=== PATIENT | female | born 1980 | race Caucasian/White ===

== ENCOUNTER 2024-01-12 21:50 | Emergency (ER) | payer BC, SELFPAY ==
[2024-01-12 21:50] VITALS: BMI 27.1
[2024-01-12 21:56] VITALS: BP 148/102
[2024-01-12 22:27] LABS: % Basophils 0.6 % (0-2); % Eosinophils 4.1 % (0-6); % Immature Granulocytes 0.3 % (0-0.5); % Lymphocytes 14.6 % (20.5-51.1); % Neutrophils 71.4 % (42.2-75.2); Absolute Eosinophils 0.1 10^3/uL (0-0.7); Absolute Lymphocytes 0.5 10^3/uL (1.2-3.4); Absolute Monocytes 0.3 10^3/uL (0.1-0.6); Absolute Neutrophils 2.5 10^3/uL (1.4-6.5); Hematocrit 39.4 % (37.0-47.0); Hemoglobin 14.2 g/dL (12.0-16.0); Mean Corpuscular Hgb 34.5 pg (27.0-31.0); Mean Corpuscular Volume 95.6 fL (81.0-99.0); Mean Platelet Volume 9.5 fL (7.4-10.4); Nucleated Red Blood Cells % 0 %; Platelet Count 175 10^3/uL (130-400); Red Blood Cell Count 4.12 10^6/uL (4.20-5.40); Red Cell Dist. Width 12.2 % (11.5-14.5); White Blood Cell Count 3.4 10^3/uL (4.8-10.8)
[2024-01-12 22:40] LABS: Lactic Acid 1.3 mmol/L (0.7-2.0)
[2024-01-12 22:41] LABS: ALT (SGPT) 23 U/L (0-35); AST (SGOT) 27 U/L (14-36); Albumin 4.8 g/dl (3.5-5.0); Alkaline Phosphatase 57 U/L (38-126); Blood Urea Nitrogen 9 mg/dl (7-17); Calcium 9.2 mg/dl (8.4-10.2); Carbon Dioxide 20 mmol/L (22-30); Chloride 101 mmol/L (98-107); Glucose 122 mg/dl (70-99); Sodium 130 mmol/L (135-145); Total Bilirubin 0.4 mg/dl (0.2-1.3); eGFR > 60.00
[2024-01-12 22:49] LABS: COVID-19 Antigen Negative (Negative)
[2024-01-13 00:34] VITALS: BP 123/81
--- NOTE | 2024-01-13 00:37 | ED.GENMED ---
History of Present Illness
<CORINNA Cline - Last Filed: 01/13/24 01:01>
General
Chief Complaint: Fever
Source: patient and significant other
Exam Limitations: none
Time Seen by Provider: 01/13/24 00:33
Nursing documentation reviewed up to this point in time: agreed with
Travel History
Have you had any contact with someone who has COVID-19?: No
Do you have any symptoms of coronavirus? Fever > 100 degrees, chills, cough, shortness of breath, sore throat, loss of taste or smell, muscle aches, or headache?: No
History of Present Illness
History of Present Illness:
patient is a 43 y/o female with PMH of hidraadenitis presenting with fever x 1 day. patient states she noticed chills earlier today. temperature on admission was 100.4. patient had an I and D 5 days ago for Hidradenitis in the axilla. Patient states
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 Patient is currently on bactrim and spirnolactone after I and D. Patient has been experiencing HOROWITZ since arrival to ED that is bilateral localized to
posterior head. Patient describes HOROWITZ as pressure. Patien's admits that she has been flushed and slightly red all day. patient admits to mild SOB. Patient denies N/V/D/C, abdominal pain, weakness, CP, foul smelling pus/discharge from
incision site, cough, dysuria, sore threat.
Past History
<CORINNA Cline - Last Filed: 01/13/24 01:01>
Past History
ED Past Medical History: Other (hidraadenitis)
ED Past Surgical History: Appendectomy and Other (I and D 5 days ago in axilla )
Review of Systems
<CORINNA Cline - Last Filed: 01/13/24 01:01>
Review of Systems
All Other Systems: Not applicable
Constitutional: Reports fever and chills
EENT: Reports no symptoms
Respiratory: Reports other (SOB)
Cardiac: Reports no symptoms
ABD/GI: Reports no symptoms
: Reports no symptoms
Musculoskeletal: Reports no symptoms
Skin: Reports other (redness)
Neurological: Reports headache
Endocrine: Reports no symptoms
Hematologic/Lymphatic: Reports no symptoms
Psychiatric: Reports no symptoms
Phy Exam
<CORINNA Cline - Last Filed: 01/13/24 01:01>
General Physical Exam
General Presentation: well appearing and no apparent distress
General Skin: warm and dry
General Habitus: normal
General Mental: alert
General Hydration: appears well hydrated
ENT Exam
ENT Exam: EOMI, pharynx normal, neck supple and normocephalic
Eye Exam
Eye Exam: PERRL, cornea clear and conjunctiva normal
Cardiovascular Exam
Cardiovascular Exam: regular rate/rhythm, no edema, no murmur and normal peripheral pulses
Pulmonary Exam
Pulmonary Exam: lungs clear, no respiratory distress, no rales, no crackles, no rhonchi, no stridor, no wheezing and no cough
Gastrointestinal Exam
Gastrointestinal Exam: normal bowel sounds, non tender, soft, no organomegaly, no pulsatile mass and non distended
Neurological Exam
Neurological Exam: alert, oriented x3, no motor deficits and speech normal
Musculoskeletal Exam
Musculoskeletal Exam: full ROM and no edema
Skin Exam
Skin Exam: redness (chest redness ) and other (mild erythema surrounding incision site )
Psychiatric Exam
Psychiatric Exam: normal mood/affect
Course
<CORINNA Cline - Last Filed: 01/13/24 01:01>
Orders/Labs/Results
Orders:
Orders
01/12/24 22:15
COVID-19 Antigen Urgent
Source: Nasal Swab
Complete Blood Count/With Diff Urgent
Comprehensive Metabolic Panel Urgent
Lactic Acid Q4H
Comment: ON ICE, CANCEL 2ND ORDER IF FIRST LACTIC ACID LEVEL <2
Blood Culture Urgent
[facility] Source: Blood/Venous
Specimen Description:
Influenza A+B Rapid Molecular Urgent
[facility] Source: Nasal Swab
Specimen Description:
01/13/24 01:34
Acetaminophen [Tylenol] 1,000 mg PO NOW STA
01/13/24 02:15
Lactic Acid Q4H
Comment: ON ICE, CANCEL 2ND ORDER IF FIRST LACTIC ACID LEVEL <2
Abnormal Lab Results
01/12/24
22:15
WBC 3.4 L 10^3/uL
(4.8-10.8)
RBC 4.12 L 10^6/uL
(4.20-5.40)
MCH 34.5 H pg
(27.0-31.0)
Absolute Lymphs (auto) 0.5 L 10^3/uL
(1.2-3.4)
Lymphocytes % 14.6 L %
(20.5-51.1)
Sodium 130 L mmol/L
(135-145)
Carbon Dioxide 20 L mmol/L
(22-30)
Glucose 122 H mg/dl
(70-99)
01/12/24 22:15
01/12/24 22:15
Vital Signs
Initial and Last Documented VS:
Initial Vital Signs
Temp Pulse Resp BP Pulse Ox
100.4 F H 116 18 148/102 99
01/12/24 21:56 01/12/24 21:56 01/12/24 21:56 01/12/24 21:56 01/12/24 21:56
Last Documented Vital Signs
Temp Pulse Resp BP Pulse Ox
98.7 F 90 18 123/81 95
01/13/24 00:34 01/13/24 00:34 01/13/24 00:34 01/13/24 00:34 01/13/24 00:34
<Ulises Cardoso, DO - Last Filed: 01/13/24 01:53>
Orders/Labs/Results
Orders:
Orders
01/12/24 22:15
COVID-19 Antigen Urgent
Source: Nasal Swab
Complete Blood Count/With Diff Urgent
Comprehensive Metabolic Panel Urgent
Lactic Acid Q4H
Comment: ON ICE, CANCEL 2ND ORDER IF FIRST LACTIC ACID LEVEL <2
Blood Culture Urgent
[facility] Source: Blood/Venous
Specimen Description:
Influenza A+B Rapid Molecular Urgent
[facility] Source: Nasal Swab
Specimen Description:
01/13/24 01:34
Acetaminophen [Tylenol] 1,000 mg PO NOW STA
01/13/24 02:15
Lactic Acid Q4H
Comment: ON ICE, CANCEL 2ND ORDER IF FIRST LACTIC ACID LEVEL <2
Abnormal Lab Results
01/12/24
22:15
WBC 3.4 L 10^3/uL
(4.8-10.8)
RBC 4.12 L 10^6/uL
(4.20-5.40)
MCH 34.5 H pg
(27.0-31.0)
Absolute Lymphs (auto) 0.5 L 10^3/uL
(1.2-3.4)
Lymphocytes % 14.6 L %
(20.5-51.1)
Sodium 130 L mmol/L
(135-145)
Carbon Dioxide 20 L mmol/L
(22-30)
Glucose 122 H mg/dl
(70-99)
01/12/24 22:15
01/12/24 22:15
Vital Signs
Initial and Last Documented VS:
Initial Vital Signs
Temp Pulse Resp BP Pulse Ox
100.4 F H 116 18 148/102 99
01/12/24 21:56 01/12/24 21:56 01/12/24 21:56 01/12/24 21:56 01/12/24 21:56
Last Documented Vital Signs
Temp Pulse Resp BP Pulse Ox
98.7 F 90 18 123/81 95
01/13/24 00:34 01/13/24 00:34 01/13/24 00:34 01/13/24 00:34 01/13/24 00:34
<CORINNA Cline - Last Filed: 01/13/24 01:01>
MDM/Problems Addressed
Differential Diagnosis Includes:
incision site infection
cellulitis
sulfa allergy
MDM/Problems Addressed:
fever x 1 day
<CORINNA Cline - Last Filed: 01/13/24 01:01>
*Critical Care Note
Total Time (30-74mins, 75-104mins- exclusive of procedures): Not Applicable
ED Attending Note
<CORINNA Cline - Last Filed: 01/13/24 01:01>
-
Portions of this chart may have been created with voice recognition software.� Occasional wrong word or��sound alike� substitutions may have occurred due to the inherent limitations of voice recognition software.
<Ulises Cardoso DO - Last Filed: 01/13/24 01:53>
ED Attending Note
Patient seen and examined by attending physician: Yes
I performed the substantive portion of visit, reviewed & personally made and approve the management plan that is documented in note by myself or FLORENTIN.: Yes
ED Attending Note:
Pleasant 43-year-old female presents with intermittent fever for the last day. Patient has hidradenitis suppurativa, went to her retail department supervisor who drained one of her cysts. Patient stated that she had no symptoms for 4 to 5 days. Denies any pain.
Today she had low-grade fever and had some chills so she came to the emergency department. Patient is on Bactrim and spironolactone which she typically gets after I&D. Patient reports no pain. She denies any redness or streaking. Patient was
seen in conjunction with the PA student. I have reviewed and agree with the history and treatment plan presented. On my independent physical exam, patient is awake, alert, and oriented x3, no acute distress. OpSite is completely healed without
any evidence of abscess, cellulitis, redness, warmth, induration, streaking, or any other skin changes. Reviewed lab work including lactic acid with patient. Patient being discharged in improved condition.
Discharge Plan
Departure
Patient Disposition: Home (Routine Discharge)
Date of Disposition: 01/13/24
Time of Disposition: 01:49
Patient with high blood pressure during this ER visit?: Yes
Condition: Good
Discharge Problem:
Fever, Visit for wound check
Instructions: Wound Care, Fever, Adult (DC), BLOOD PRESSURE
Prescriptions:
No Action
spironolactone
50 mg PO BID
sulfamethoxazole
1 tab PO BID
Rx Instructions:
No milligram dose on bottle
Referrals:
Lisa Leija CRNP [Family Provider] -
Activity Restrictions/Additional Instructions:
It was a pleasure meeting you and taking part in your care. We hope for your continued healing and wellness.
Please read discharge instructions in their entirety. However, they are for general education and may not describe your exact diagnosis at discharge. Information on your ER visit and medical conditions were discussed with you along with appropriate
follow up information...
If indicated, please take your medications as instructed and indicated on discharge paperwork.
Please schedule a follow up appointment as directed. Call to schedule an appointment
Please return to the emergency department with ANY change in, persisting, or worsening of symptoms. If any of your symptoms do not improve, or persist, or become more severe within 6-12 hours, please return to the emergency department for further
care.
Please return to the emergency department if you develop a headache, neck pain/stiffness, fever greater than 100.4F, chest pain, shortness of breath, persistent nausea, vomiting, slurred speech, difficulty walking, numbness/tingling, weakness, signs
of infection or any other symptoms that are worrisome to you.
If you have any questions or concerns please do not hesitate to call the Hospital at or E-mail me directly at [email or web address]
Interventions
Interventions:
*Risk Screen - Suicide Last Done: 01/13/24 00:38
*General Assessment Last Done: 01/13/24 00:27
*Neglect/Abuse Screening Last Done: 01/13/24 00:38
ED- Fall Risk Assessment Last Done: 01/13/24 00:39
*ED COVID-19 Vaccine History Last Done: 01/13/24 00:27
ED- Neurological Assessment Last Done: 01/13/24 00:21
ED-Skin Assessment Last Done: 01/13/24 00:36
[2024-01-13] MEDS: TYLENOL 1000 MG PO (01:36)
[2024-01-13 01:50] VITALS: BP 120/89
[2024-01-13 02:02] VITALS: BP 120/89
== END 2024-01-13 02:03 | disposition home or self-care (01) ==
LOC: EMR 21:50
PROVIDERS: Emergency Medicine; EMERGENCY PHYSICIAN Student in an Organized Health Care Education/Training Program; FAMILY PHYSICIAN Nurse Practitioner Family
DX: R50.9 Fever, unspecified (principal); Z48.01 Encounter for change or removal of surgical wound dressing; R03.0 Elevated blood-pressure reading, without diagnosis of hypertension; L73.2 Hidradenitis suppurativa; Z11.52 Encounter for screening for COVID-19
CPT/HCPCS: 99283; 80053; 83605; 85025; 87040; 87502; 87811